=== PATIENT | male | born 1995 | race Caucasian/White ===

== ENCOUNTER 2016-09-20 06:11 | Emergency (ER) | payer OTHER ==
--- NOTE | ~2016-09-20 | CT4 ---
[facility] A Service of [facility] RADIOLOGY TEXT RESULTS PATIENT: AMANDA GAONA LOCATION: [facility] : [birth year] UNIT #: [id number] AGE: [address]: Hemanth Lizama MD SEX: M ORDER DR: [id number] [facility] [address] [place], [place] [address] [id number] E MR#: [id number] Acc #: [id number] NAME: AMANDA GAONA : 1995 SEX: M STUDY DATE/TIME: 09/20/2016 8:06 UNIT: [facility] ROOM: STUDY DESCRIPTION: CT Abd and Pelv Wo Cont Attending Physician: Hemanth Lizama M.D. Ordering Physician: Hemanth Lizama M.D. Primary Care Physician: No Primary Care Physician MEDICAL IMAGING REPORT This report is preliminary unless electronic signature is present EXAM Abdomen and pelvis CT no contrast, 09/20/2016 INDICATIONS A 21-year-old male with testicular pain that began last night. TECHNIQUE Noncontrast abdomen and pelvis CT was performed and compared with 04/04/2016. This CT exam was performed with one or more of the following radiation dose reduction techniques: automatic exposure control, adjustment of mA and/or kV according to patient size, and iterative reconstruction. Exam degraded by noncontrast technique. FINDINGS Included lung bases are clear. No effusion. Aorta demonstrates no aneurysm. The spleen adrenal glands pancreas and gallbladder are unremarkable. There is a nonobstructing 3-4 mm stone in the lower pole left kidney. Tiny punctate nonobstructing stones in the right kidney. Mild hydronephrosis and hydroureter on the right secondary to have faint stone at the right UVJ level measuring about 1-2 mm. Benign cyst in the medial mid pole left kidney measures less than a centimeter. CT Pelvis: The bladder and prostate are otherwise unremarkable. No drainable fluid collection in the pelvis. Bowel and appendix normal. Inguinal canals unremarkable. No suspicious bone lesion. IMPRESSION [facility] A Service of [facility] RADIOLOGY TEXT RESULTS PATIENT: AMANDA GAONA LOCATION: [facility] : [birth year] UNIT #: [id number] AGE: [address]: Hemanth Lizama MD SEX: M ORDER DR: 1. Mild hydronephrosis and hydroureter on the right secondary to an obstructing 1-2 mm stone at the right UVJ level. 2. Nonobstructing stones bilaterally as described. Incidental left renal cyst. 3. Appendix normal. Dictated by... Asher Orlando M.D. THIS IS AN ELECTRONICALLY VERIFIED REPORT Asher Orlando M.D. at 09/20/2016 4:09 PM Doris TD: 09/20/2016 15:26 JOB #: [id number] MEDICAL IMAGING REPORT Page 1 of 1 COPY
--- NOTE | ~2016-09-20 | US115 ---
[facility] A Service of [facility] RADIOLOGY TEXT RESULTS PATIENT: AMANDA GAONA LOCATION: [facility] : [birth year] UNIT #: [id number] AGE: [address]: Hemanth Lizama MD SEX: M ORDER DR: [id number] [facility] [address] [place], [place] [address] [id number] E MR#: [id number] Acc #: [id number] NAME: AMANDA GAONA : 1995 SEX: M STUDY DATE/TIME: 09/20/2016 7:36 UNIT: [facility] ROOM: STUDY DESCRIPTION: US Scrotum and Contents Attending Physician: Hemanth Lizama M.D. Ordering Physician: Hemanth Lizama M.D. Primary Care Physician: No Primary Care Physician MEDICAL IMAGING REPORT This report is preliminary unless electronic signature is present EXAM Testicular ultrasound, bilateral 09/20/2016 INDICATIONS A 21-year-old male with right-sided testicular pain for a day. FINDINGS Sonographic imaging of the testicles was performed utilizing sierra-scale, color Doppler spectral analysis. COMPARISON 04/04/2016 FINDINGS The right testicle measures 4.2 x 1.6 x 2.8 cm and the left 4.3 x 1.9 x 2.8 cm. No evidence of testicular mass on either side. No evidence of orchitis or distinct epididymitis. The right epididymal head is slightly hypoechoic but not hypervascular. Incidental epididymal head cyst on the left measures 7 mm. Both testicles demonstrate good flow at the time of the study. IMPRESSION 1. Essentially negative testicular ultrasound. Incidental epididymal head cyst on the left is unchanged. There is no distinct evidence of orchitis and both testicles demonstrate good flow. 2. The right epididymal head is slightly hypoechoic compared to the left, but there is no hypervascularity to suggest distinct epididymitis on ultrasound. Correlate clinically. Dictated by... Asher Orlando M.D. [facility] A Service of [facility] RADIOLOGY TEXT RESULTS PATIENT: AMANDA GAONA LOCATION: [facility] : [birth year] UNIT #: [id number] AGE: [address]: Hemanth Lizama MD SEX: M ORDER DR: THIS IS AN ELECTRONICALLY VERIFIED REPORT Asher Orlando M.D. at 09/20/2016 4:09 PM Doris TD: 09/20/2016 15:11 JOB #: [id number] MEDICAL IMAGING REPORT Page 1 of 1 COPY
[~2016-09-20 06:11] MED LIST: LORTAB 5/500 TA1 TA1 PO; NO MEDICATIONS; POTASSIUM99 M1; ROBITUSSIN-PE1 ML PO; VOLTAREN75 MG PO
[2016-09-20 06:48] LABS: BASOPHIL# 0.1 X10e3 (0-0.3); BASOPHIL% 1.1 % (0-2.5); EOSINOPHIL# 0.3 X10e3 (0-0.7); EOSINOPHIL% 4.1 % (0.0-7.0); HEMATOCRIT 53.3 % (38.0-50.0); HEMOGLOBIN 18.1 gm/dL (13.0-16.0); LYMPHOCYTE# 2.4 X10e3 (1.0-3.5); LYMPHOCYTE% 30.1 % (17.0-45.0); MEAN CELL VOLUME 92.4 FL (83-96); MEAN CORPUSCULAR HEMOGLOBIN 31.3 PG (28-34); MEAN CORPUSCULAR HGB CONC 33.9 g/dL (30-36); MEAN PLATELET VOLUME 9.2 FL (6.5-11.5); MONOCYTE# 0.6 X10e3 (0-1.0); MONOCYTE% 7.5 % (3.0-12.0); NEUTROPHIL# 4.6 X10e3 (1.5-7.1); NEUTROPHIL% 57.2 % (40-75); PLATELET COUNT 158 X10e3 (140-420); RED BLOOD COUNT 5.77 X10e (3.90-5.60); RED CELL DISTRIBUTION WIDTH 12.2 % (11.0-15.5); WHITE BLOOD COUNT 8.1 X10e3 (4.0-10.5)
[2016-09-20 06:52] LABS: DIFF IND NO
[2016-09-20 07:10] LABS: ALBUMIN SERUM 4.9 g/dL (3.5-5.0); BILIRUBIN, DIRECT 0.2 mg/dL (0.0-0.2); BILIRUBIN,INDIRECT 1.5 mg/dL (0.0-0.9); BILIRUBIN,TOTAL 1.7 mg/dL (0.2-2.0); BUN/CREATININE RATIO 10.83; CALCIUM SERUM 10.1 mg/dL (8.4-10.2); CREATININE SERUM 1.2 mg/dL (0.6-1.4); GLOM FILT RATE Estimated 86.6 mL/min (>60); PROTEIN TOTAL SERUM 7.6 g/dL (6.0-8.3)
[2016-09-20 09:26] LABS: URINE SOURCE CLEAN CATCH
[2016-09-20 09:48] LABS: URINE APPEARANCE CLEAR; URINE BILIRUBIN NEG (NEG); URINE BLOOD 3+ (NEG); URINE COLOR DK YELLOW; URINE GLUCOSE NEG (NEG); URINE KETONE TRACE (NEG); URINE LEUKOCYTE ESTERASE 1+ (NEG); URINE NITRATE NEG (NEG); URINE PH 7.5 (5-8); URINE PROTEIN TRACE (NEG); URINE SPECIFIC GRAVITY 1.017 (1.003-1.035)
[2016-09-20 09:49] LABS: URBCS1 AUWI 100-200 /[HPF] (0-2); URINE BACTERIA AUWI NEG (NEGATIVE); URINE SQUAMOUS EPITHELIAL CELL NONE SEEN /[HPF]
[2016-09-20 10:09] LABS: CULTURE INDICATED? NO
[2016-09-20 10:11] LABS: AMPHETAMINE NEG (NEG); BARBITURATES NEG (NEG); BENZODIAZEPINES NEG (NEG); COCAINE NEG (NEG); MARIJUANA POS (NEG); OPIATES NEG (NEG); TRICYCLIC ANTIDEPRESSANTS NEG (NEG); U METHADONE NEG (NEG)
[2016-09-23 23:21] LABS: CHLAMYDIA TRACH Not Detected (Not Detected); N GONOR Not Detected (Not Detected)
== END 2016-09-20 10:43 | disposition home or self-care (01) ==
LOC: CED 06:11
PROVIDERS: Emergency Medicine
DX: N13.2 Hydronephrosis with renal and ureteral calculous obstruction (principal); F17.200 Nicotine dependence, unspecified, uncomplicated
CPT/HCPCS: 36415; 74176; 76870; 80048; 80076; 80307; 81003; 85025; 87491; 87591; 96361; 96374; 99284; J1885